=== PATIENT | male | born 1975 | race Caucasian/White ===

== ENCOUNTER 2019-12-15 08:00 | Outpatient (CLI) | payer OTHER ==
--- NOTE | 2019-12-15 10:52 | XRAY Report ---
PROCEDURE: Shoulder 3 View RT INDICATIONS: RIGHT SHOULDER PAIN TECHNIQUE: 3 views of the shoulder were acquired. COMPARISON: None. FINDINGS: Bones: No fractures or dislocations. Moderate hypertrophic osteoarthritic changes of the right acrom ioclavicular joint. Coracoclavicular and acromioclavicular intervals are maintained. No suspicious [place]ose [place] lesions. Visualized ribs appear intact. Soft tissues: No suspicious soft tissue calcifications. IMPRESSION: Right shoulder without acute fracture or dislocation. Moderate hypertrophic osteoarthrosis of the right acromioclavicular joint. Reviewed by: Aristides Abdul MD on 12/15/2019 10:50 AM PDT Approved by: Aristides Abdul MD on 12/15/2019 10:50 AM PDT Station ID: [id number]
== END 2019-12-15 23:59 | disposition home or self-care (01) ==
LOC: DI.S 08:00
PROVIDERS: ATTEND Physician Assistant Medical
DX: M19.011 Primary osteoarthritis, right shoulder (principal)